=== PATIENT | female | born 1990 | race Caucasian/White ===

== ENCOUNTER 2020-01-21 12:46 | Emergency (ER) | payer BC, MEDICAID ==
[~2020-01-21] VITALS: Ht 165.1 cm; Wt 80.9 kg
[2020-01-21] MEDS ORDERED: ONDANSETRON 2MG/ML, 2ML ONE (13:19)
[2020-01-21] MEDS ORDERED: FAMOTIDINE 20 MG/2 ML ONE (13:19)
[2020-01-21 13:41] LABS: ALANINE AMINOTRANSFERASE 22 U/L (12-78); ALBUMIN 3.4 g/dL (3.4-5.0); ANION GAP 6 mmol/L (5-15); CALCIUM 8.6 mg/dL (8.5-10.1); CHLORIDE 108 mmol/L (98-107); CREATININE 0.61 mg/dL (0.55-1.02)
[2020-01-21 13:43] LABS: MEAN CORPUSCULAR HEMOGLOBIN 28.3 pg (27.0-34.8); MEAN CORPUSCULAR HGB CONC 32.5 g/dL (32.4-35.8); MEAN CORPUSCULAR VOLUME 87.2 fL (80-100); MEAN PLATELET VOLUME 8.4 fL (7.4-10.4); PLATELET COUNT 663 x10^3/uL (130-400); RED BLOOD COUNT 4.66 x10^6/uL (3.82-5.3); RED CELL DISTRIBUTION WIDTH 13.1 % (9.6-15.2)
[2020-01-21 13:45] LABS: ALKALINE PHOSPHATASE 82 U/L (45-117); BILIRUBIN,TOTAL 0.6 mg/dL (0.2-1.0); TOTAL PROTEIN 7.7 g/dL (6.4-8.2)
[2020-01-21] MEDS ORDERED: SODIUM CHLORIDE 0.9% 1,000ML IVBOLUS ONE (14:00)
[2020-01-21] MEDS ORDERED: ONDANSETRON 2MG/ML, 2ML IVPush ONE (14:00)
[2020-01-21] MEDS ORDERED: FAMOTIDINE 20 MG/2 ML IVPush ONE (14:00)
[2020-01-21] MEDS ORDERED: SODIUM CHLORIDE FLUSH 10ML SYR IVF ONE (14:00)
[2020-01-21 14:01] LABS: BASOPHILS # (AUTO) 0.08 x10^3/uL (0-0.1); BASOPHILS % (AUTO) 1 % (0-1); EOSINOPHILS # (AUTO) 0.21 x10^3/uL (0-0.4); EOSINOPHILS % (AUTO) 2 % (1-7); LYMPHOCYTES # (AUTO) 3.49 x10^3/uL (1-3.4); LYMPHOCYTES % (AUTO) 36 % (22-44); MD SCAN; MONOCYTES # (AUTO) 0.48 x10^3/uL (0.2-0.8); MONOCYTES % (AUTO) 5 % (2-9); NEUTROPHILS # (AUTO) 5.43 x10^3/uL (1.8-6.8); NEUTROPHILS % (AUTO) 56 % (42-75)
[2020-01-21] MEDS ORDERED: DIPHENHYDRAMINE 50 MG/ML, 1ML ONE (14:25)
[2020-01-21] MEDS ORDERED: KETOROLAC 30 MG/1 ML ONE (14:26)
[2020-01-21] MEDS ORDERED: METOCLOPRAMIDE 5 MG/ML, 2ML ONE (14:26)
[2020-01-21] MEDS ORDERED: DIPHENHYDRAMINE 50 MG/ML, 1ML IVPush ONE (14:30)
[2020-01-21] MEDS ORDERED: KETOROLAC 30 MG/1 ML IVPush ONE (15:00)
[2020-01-21] MEDS ORDERED: METOCLOPRAMIDE 5 MG/ML, 2ML IVPush ONE (15:00)
[2020-01-21 15:58] VITALS: BP 131/84
--- NOTE | 2020-01-21 15:59 | NUR ---
BREAK RN: PT RESTING ON JULIO. NADN. GARCIA.
[2020-01-21 16:03] LABS: MICROSCOPIC NOT IND
--- NOTE | 2020-01-21 16:09 | NUR ---
BREAK RN: PT STATES IMPROVEMENT FROM HEADACHE. CHART REVIEWED AND PLACED FOR RECHECK.
== END 2020-01-21 17:07 | disposition home or self-care (01) ==
LOC: ED 13:11
DX: E86.0 Dehydration (principal); R11.2 Nausea with vomiting, unspecified; R51 Headache; R42 Dizziness and giddiness; M79.10 Myalgia, unspecified site; F17.210 Nicotine dependence, cigarettes, uncomplicated
CPT/HCPCS: 36415; 80053; 81003; 83690; 84703; 85025; 93005; 96361; 96374; 96375; 99284; 99406; J1200; J1885; J2405; J2765; J3490; J7030

== ENCOUNTER 2020-06-22 10:24 | Emergency (ER) | payer MEDICAID ==
[~2020-06-22] VITALS: Ht 165.1 cm; Wt 81.2 kg
[2020-06-22] MEDS ORDERED: SODIUM CHLORIDE 0.9% 1,000ML IVBOLUS ONE (11:00)
[2020-06-22] MEDS ORDERED: PROCHLORPERAZINE 5 MG/ML, 2ML IVPush ONE (11:00)
[2020-06-22] MEDS ORDERED: DIPHENHYDRAMINE 50 MG/ML, 1ML IVPush ONE (11:00)
[2020-06-22] MEDS ORDERED: METOCLOPRAMIDE 5 MG/ML, 2ML ONE (11:01)
[2020-06-22] MEDS ORDERED: DIPHENHYDRAMINE 50 MG/ML, 1ML ONE (11:01)
[2020-06-22] MEDS ORDERED: KETOROLAC 30 MG/1 ML ONE (11:14)
[2020-06-22] MEDS ORDERED: PROCHLORPERAZINE 5 MG/ML, 2ML ONE (11:18)
[2020-06-22] MEDS ORDERED: KETOROLAC 30 MG/1 ML IVPush ONE (11:30)
--- NOTE | 2020-06-22 11:43 | NUR ---
PT PRESENTS TO ED WITH C/O INTERMITTENT MIGRAINE X 4 DAYS, TAKES IMITREX PRN BUT HAS TAKEN 2 DOSES IN LAST 4 DAYS (LAST DOSE YESTEDAY) AND STATES SHE IS NOT PERMITTED TO TAKE MORE THAN 2 DOSES PER WEEK. PT TOOK TWO DOSES EXCEDRIN STRUCTURAL ARCHITECT, AT 0400 AND JUST PRIOR TO ARRIVAL, DOLORES MYERS NOTIFIED AND OK'D TORADOL. BENADRYL CANCELLED PT IS DRIVING SELF HOME. BP AND SPO2 MONITORS IN PLACE. NS BOLUS INFUSING. CALL LIGHT IN REACH. WARM BLANKETS PROVIDED, LIGHTS DIMMED.
[2020-06-22 12:07] VITALS: BP 158/89
--- NOTE | 2020-06-22 12:45 | NUR ---
piv dc'd with tip intact, pt reports migraine now /. pt a&o, resps even and unlabored, ambulatory to dc desk with steady gait. all questions answered.
== END 2020-06-22 12:46 | disposition home or self-care (01) ==
LOC: ED 11:33
DX: G43.019 Migraine without aura, intractable, without status migrainosus (principal); R11.2 Nausea with vomiting, unspecified; F17.200 Nicotine dependence, unspecified, uncomplicated
CPT/HCPCS: 96361; 96374; 96375; 99284; J0780; J1885; J7030